=== PATIENT | male | born 1995 | race Caucasian/White ===

== ENCOUNTER 2018-08-22 04:07 | Emergency (ER) | payer SELFPAY ==
[~2018-08-22] VITALS: Ht 172.7 cm; Wt 106.5 kg
[2018-08-22 04:10] VITALS: BP 158/88; PULSE 107; RESP 18; Ht 172.7 cm; Wt 106.5 kg
--- NOTE | 2018-08-22 04:39 | ERD ---
ER Documentation Chief Complaint Chief Complaint C/O PAIN AND BLEEDING FROM RECTUM X1 MONTH, HX OF HEMORRHOIDS HPI This is a 23-year-old male who presents to the emergency department with complaints of on and off rectal bleeding for about a month. Stated that he has history of hemorrhoids but never seen a doctor for this. Denies headache, head injury, loss of consciousness, dizziness, neck pain, neck stiffness, throat pain, difficulty swallowing, difficulty breathing lying flat, shoulder pain, chest pain, back pain, abdominal pain, nausea, vomiting, constipation, diarrhea, urinary symptoms, loss of bowel and bladder control, trauma, injury, falls, difficulty walking due to pain, numbness or tingling sensation, calf pain, recent travel, recent major surgery in the last 3 weeks, calf pain, recent long travel, recent exposure to any illness, recent antibiotic use in the last 3 months, fever, chills, seizures. Past medical history: Denies. Surgical history: Denies. Social: Denies smoking, use of alcoholic beverages, use of illegal drugs. ROS All systems reviewed and are negative except as per history of present illness. Allergies Allergies: Coded Allergies: No Known Allergy (Unverified , 08/22/18) Physical Exam Vitals Vital Signs Date Temp Pulse Resp B/P (MAP) Pulse Ox O2 O2 Flow FiO2 Time Delivery Rate 08/22/18 99.3 107 18 158/88 98 04:10 (111) Physical Exam Const: No acute distress Head: Atraumatic Eyes: Normal Conjunctiva ENT: Normal External Ears, Nose and Mouth. Neck: Full range of motion. No meningismus. Resp: Clear to auscultation bilaterally Cardio: Regular rate and rhythm, no murmurs Abd: Soft, non tender, non distended. Normal bowel sounds. Rectal area: No external hemorrhoids. No tenderness to perirectal area. Very low suspicion for perirectal abscess. Negative Arteaga sign. Negative Julia sign (heel jar test). Negative psoas sign. Negative Rovsing sign. No CVA tenderness. Able to jump 10 times without developing lower abdominal pain. Skin: No petechiae or rashes. Appears normal for ethnicity. Back: No midline or flank tenderness Ext: No cyanosis, or edema Neur: Awake and alert. No neurological deficits. Psych: Normal Mood and Affect Result Diagram: 08/22/18 0502 Results 24 hrs Laboratory Tests Test 08/22/18 04:20 08/22/18 05:02 Stool Occult Blood POSITIVE White Blood Count 10.3 10^3/ul Red Blood Count 5.52 10^6/ul Hemoglobin 15.5 g/dl Hematocrit 46.0 % Mean Corpuscular Volume 83.3 fl Mean Corpuscular Hemoglobin 28.1 pg Mean Corpuscular Hemoglobin Concent 33.7 g/dl Red Cell Distribution Width 11.6 % Platelet Count 256 10^3/UL Mean Platelet Volume 9.3 fl Immature Granulocytes % 0.500 % Neutrophils % 75.0 % Lymphocytes % 15.8 % Monocytes % 7.1 % Eosinophils % 1.0 % Basophils % 0.6 % Nucleated Red Blood Cells % 0.0 /100WBC Immature Granulocytes # 0.050 10^3/ul Neutrophils # 7.7 10^3/ul Lymphocytes # 1.6 10^3/ul Monocytes # 0.7 10^3/ul Eosinophils # 0.1 10^3/ul Basophils # 0.1 10^3/ul Nucleated Red Blood Cells # 0.0 10^3/ul Prothrombin Time 12.2 Sec Prothrombin Time Ratio 1.0 INR International Normalized Ratio 0.89 Activated Partial Thromboplast Time 31.5 Sec Procedures/MDM Diagnostic tests: Stool for occult blood: Positive. Blood works: Reviewed. Treatment: Not applicable. Re-evaluation: No active bleeding. No abdominal tenderness. Able to jump 10 times without developing lower abdominal pain. This case was discussed with my supervising physician, Dr. Omar Puentes who agreed my medical decision making. Differential diagnosis I have low suspicion for hemorrhage, severe anemia, perirectal abscess, diverticulitis. Final diagnosis: Rectal bleeding. Internal hemorrhoids. Prescription: Colace. Tylenol. Follow-up with PCP in the next 24-48 hours. Come back here in the emergency department for any new symptoms or any worsening symptoms. All questions and concerns were answered. Patient and family members verbalized understanding and agreed with plan of care. Hemodynamically stable on discharge. Departure Diagnosis: Primary Impression: Rectal hemorrhage Additional Impression: Hemorrhoids Condition: Stable Additional Instructions: Follow-up with PCP in the next 24-48 hours. Come back here in the emergency department for any new symptoms or any worsening symptoms. KRISTEN BYRD Aug 22, 2018 04:39
[2018-08-22] MEDS ORDERED: ACET500C5 PO (05:56)
[2018-08-22] MEDS ORDERED: DOCU-144 PO (05:57)
[2018-08-22] MEDS ORDERED: FAMO-96 PO (05:59)
== END 2018-08-22 06:09 | disposition home or self-care (01) ==
LOC: FTE 04:07
DX: K62.5 Hemorrhage of anus and rectum (principal); K64.9 Unspecified hemorrhoids
CPT/HCPCS: 36415; 82270; 85025; 85610; 85730; 99284